=== PATIENT | male | born 1990 ===

== ENCOUNTER 2025-05-18 15:28 | Inpatient (IN) | payer OTHER ==
[~2025-05-18] VITALS: Ht 182.9 cm; Wt 189.9 kg
--- NOTE | 2025-05-18 19:15 | NUR ---
ADMISSION NOTE PT ARRIVED TO [facility] VIA SECURE TRANSPORT FROM [place] A DIRECT ADMIT AT APPROX 1828. PT WAS AxOx4. PLEASANT AND COOPERATIVE WITH CARE. 2 RN SKIN CHECK COMPLETED WITH C/D/I SKIN NOTED OVERALL. PT ARRIVED AT SHIFT CHANGE, THEREFORE THE ADMISSION ASSESSMENT/FORMS WERE NOT COMPLETED. THE ONCOMING NOC RN WAS MADE AWARE. PT WAS PROVIDED A MEAL AND ORIENTED TO THE UNIT. HE DENIES ANY OTHER IMMEDIATE CONCERNS.
[2025-05-18] MEDS ORDERED: Polyethylene Glycol 3350 17 gm PO PRN (20:20)
[2025-05-18] MEDS ORDERED: Ondansetron 4 MG SoluTab MM PRN (20:20)
[2025-05-18] MEDS ORDERED: Haloperidol Lactate Inj. 5 MG/ML Injection IM PRN (20:25)
[2025-05-18] MEDS ORDERED: Aluminum Hydroxide 320MG/5ML 473 ML PO PRN (20:25)
[2025-05-18] MEDS ORDERED: DiphenhydrAMINE HCl 50 MG/ML 1ML Vial IM PRN (20:25)
[2025-05-18 20:57] VITALS: BP 121/71
--- NOTE | 2025-05-18 22:27 | NUR ---
ADMISSION NOTE PT ARRIVED VIA SECURE TRANSPORT FROM [place] @1828. TWO RN SKIN CHECK COMPLETED BY DAY SHIFT RNS RONEY AND MARITZA. REPORT THAT SKIN IS CDI. PT IS AA&O TO PERSON, PLACE, SITUATION AND TIME. HE IS CALM AND COOPERATIVE. HE IS TIRED FROM TRANSPORT BUT ANSWERS QUESTIONS APPROPRIATELY. HE IS PROVIDED FOOD AND WATER. HE REPORTS MEDICAL HX OF HIV AND BIPOLAR. HE IS UNSURE IF IT WAS "ONE OR TWO" HE ENDORSES SI D/T RECENT OF BROTHER (BY SUICIDE) HIS AUNT AND UNCLE. HE STATES RECENT MOVE AND HOUSING INSTABILITY MAIN SI TRIGGERS. HE DENIES ALCOHOL AND TOBACCO USE. STATES HIS DRUG OF CHOICE IS METH. HE STATES THAT HE HAS DAILY THOUGHTS OF SI, PLAN WOULD BE TAKING F[place]OL BECAUSE HE KNOWS IT WOULD "DO THE TRICK" PROTECTIVE FACTORS ARE FEAR OF DYING. REPORTS HE HAS NEVER ACTED ON SI. PT ADMISSION PAPERWORK COMPLETE. PT ORIENTATED TO UNIT, SHOWERED AND IS NOW SLEEPING. HE DECLINED ANY PRN SLEEP MEDICATION.
--- NOTE | 2025-05-19 04:05 | NUR ---
END OF SHIFT UPDATE ASSUMED CARE OF PT AT 0000. NO ACUTE CHANGES. PT HAS REMAINED IN BED THROUGHOUT THE NIGHT. Q15 MINUTE CHECKS TO CONTINUE PER PT SAFETY/UNIT PROTOCOL.
[2025-05-19 08:28] LABS: CHOL/HDL RATIO 3.6; Cholesterol 181 mg/dL (50-200); HDL Cholesterol 50 mg/dL (>39); LDL/HDL RATIO 2.4; Low Density Lipoprotein Chol 118 mg/dL (0-110); Triglycerides 63 mg/dL (30-140); Very Low Density Lipoprot Chol 12 mg/dL (6-28)
[2025-05-19 08:57] VITALS: BP 131/83
[2025-05-19] MEDS ORDERED: Multivitamins 1 Tab PO SCH (09:00)
--- NOTE | 2025-05-19 17:04 | NUR ---
SHIFT SUMMARY PT WOKE UP FOR MORNING MEAL AND WAS COMPLIANT WITH HIS MEDICATIONS. HE DENIED ANY SI/HI/AVH AT THIS TIME AND C/O FEELING TIRED AND NEEDING MORE REST. HE ALSO C/O ALWAYS FEELING HUNGRY. HE PARTICIPATED IN ALL GROUPS AND HE WAS ACTIVE IN THE [facility]. THERE WAS A MESSAGE LEFT FROM PABLO ELIZONDO FROM [employer] TO COORDINATE D/C PLANNING BACK TO [place]. HER PHONE# [phone] FAX# [phone]. PT HAS NOT HAD ANY ACUTE INCIDENTS THIS SHIFT.
[2025-05-19 20:44] VITALS: BP 126/77
--- NOTE | 2025-05-20 04:29 | NUR ---
SHIFT SUMMARY PT LAYING IN BED, READING AT START OF SHIFT. HE DENIES ANY SI, HI, THOUGHTS OF SELF HARM OR AVTH. HE REPORTS HIS MOOD "BETTER". HE WAS OBSERVED TAPPING HIS FEET AND STATED HE WAS A LITTLE ANXIOUS. HE STATED HE WOULD TAKE SOME HYDROXYZINE, BUT WHEN I ATTEMPTED TO GIVE HIM THE MEDICATION, HE DECLINED TO TAKE IT, STATING THAT IT WOULD MAKE HIM SLEEP FOR DAYS. PT HAD EVENING SNACK AND RECEIVED PRN MELATONIN. HE HAD A SHOWER AND WENT TO BED. Q15 MINUTE CHECKS TO CONTINUE PER PT SAFETY/UNIT PROTOCOL.
--- NOTE | 2025-05-20 07:45 | NUR ---
Philly from [facility] care coordination called to ask if this patient would be returning to his prior area upon discharge. I provided her contact information to the patient and will have the patient reach out to speak with her. He did sign a ROSANA for [facility] this am. [facility] is the treatment facility that he'd like to go to upon discharge for drug and alcohol treatment. The facility is in [facility], close to his [facility].
[2025-05-20 09:00] VITALS: BP 137/84
--- NOTE | 2025-05-20 09:03 | NUR ---
DISCHARGE INFO- ROSANA WAS SIGNED FOR [facility] AND A CALL WAS PLACED TO SEE EXACTLY WHAT INFO THEY WANTED. THEY WOULD LIKE TO KNOW THE DISCHARGE DATE, SOON WE KNOW SO THAT THEY CAN BEGIN TO ARRANGE FOR HIS POST DC ADMISSION INTO DRUG/ALCOHOL TREATMENT. ROSANA IS IN THE CHART. [facility] PHONE [phone] AND [phone] FAX [phone]
--- NOTE | 2025-05-20 16:33 | NUR ---
This staff writer assumed care of this patient at approx. 1450. Patient denies hallucinations, HI, SI, and describes feeling "blah". Affect is congruent. He stated that he has been using methamphetamines for about two years, and so it will take a while to leave his system. He says that he has tried antidepressants in the past, however they make his mood worse so he is not interested at this time. He did participate in groups today, relaxed in the group room and outside with peers. Patient is appropriate with staff and others during interactions.
[2025-05-20 20:11] VITALS: BP 147/66
--- NOTE | 2025-05-21 04:14 | NUR ---
SHIFT SUMMARY PT LAYING IN BED RESTING AT START OF SHIFT. HE REPORTS HIS MOOD "SO-SO", HAS A FLAT AFFECT. HE DENIES ANY SI, HI, THOUGHTS OF SELF HARM OR AVTH. HE RECEIVED PRN MELATONIN, HAD EVENING SNACK AND WENT TO BED. HE HAS REMAINED IN BED THROUGHOUT THE NIGHT. Q15 MINUTE CHECKS TO CONTINUE PER PT SAFETY/UNIT PROTOCOL.
[2025-05-21 08:43] VITALS: BP 123/77
--- NOTE | 2025-05-21 17:16 | NUR ---
SHIFT SUMMARY DENIES SI, HI, AVTH. PT RELUCTANT TO JOIN GROUPS, BUT AFTER TALKING W/ PT ABOUT PURPOSE AND BENEFITS, PT HAS GONE TO ALL GROUPS. PT HAS BEEN IN DAY ROOM WATCHING TV AND INTERACTING W/ PT'S AND STAFF. PLEASANT AND COOPERATIVE, GUARDED AND BLUNTED AFFECT.
--- NOTE | 2025-05-22 05:13 | NUR ---
SHIFT SUMMARY: PT A/O X4. PLEASANT AND COOPERATIVE. IN DINNING AREA AT THE BEGINNING OF THE SHIFT. PT DENIES TO BE SI, HI AND AVH. PT IS GUERED IN MOOD,BUT WILLING TO ANSWERE QUESTIONS WHEN ASKED. STATES HE THINKS HE IS GOING TO BE GOING HOME TOMMOROW. TOOK MELATONIN FOR BEDTIME SLEEP AID. PT SLEPT SINCE GOING TO BED AT 2200. PLEASANT AND COOPERATIVE. WATCHED TV IN THE GROUP ROOM. WILL CONTINUE TO MONITOR
[2025-05-22 07:59] VITALS: BP 129/80
--- NOTE | 2025-05-22 17:41 | NUR ---
SHIFT ASSESSMENT: PT WAS RESTING IN HIS BED AT THE TIME OF THE INTERVIEW. HE DENIED SI, HI, AVH, ANXIETY AND PAIN. PT REPORTED HIS MOOD , "KIND OF IN-BETWEEN." PT'S AFFECT WAS CONCRUENT WITH HIS STATED MOOD. PT ATTENDED TV TIME WITH PEERS AND HAS BEEN PLEASANT AND COOPERATIVE.
[2025-05-22 19:12] VITALS: BP 135/70
--- NOTE | 2025-05-23 04:45 | NUR ---
SHIFT SUMMARY: PATIENT WAS LYING IN BED AT THE BEGINNING OF THE SHIFT. HE AWAKENED TO HIS NAME STATED SOFTLY AND PARTICIPATED IN BUSINESS INFORMATION CONSULTANT BY GIVING LOGICAL AND LINEAR ANSWERS. HE STATED, "I'M JUST REALLY TIRED" AND DENIED SUICIDAL IDEATION, THOUGHTS OF SELF HARMING AND A/V/T HALLUCINATIONS. HE STATED, "I THINK I'M GETTING THE HELP I NEED" AND "I DON'T KNOW WHY I'M SO TIRED". HE DECLINED OFFER OF SNACK AT 2030, AND STATED THAT HE DID NOT NEED ANY PRN SLEEP MEDICATIONS, EVEN THE MELATONIN HE TOOK THE NIGHT BEFORE. HE STAYED IN BED THROUGHOUT THE SHIFT AND WAS NOTED TO BE RESTING QUIETLY WITH EYES CLOSED AND RESPIRATIONS CONFIRMED. CONTINUING TO MONITOR FOR SAFETY WITH Q15 MINUTE CHECKS.
[2025-05-23 08:36] VITALS: BP 126/76
--- NOTE | 2025-05-23 16:23 | NUR ---
SHIFT SUMMARY PT A/O X4; DENIES SI, HI, AVTH. PT APPEARS RESTLESS/ANXIOUS AT TIMES BUT DECLINES THE NEED FOR MEDICATIONS. PT DOES NOT LIKE HOW MEDICATIONS MAKE HIM FEEL AND REPORTS THAT HE IS ABLE TO USE COPING SKILLS TO HELP HIM CALM DOWN. PT TO DISCHARGE TO INPATIENT DRUG AND ALCOHOL REHAB WITH [facility]. PT WANTED TO DISCHARGE TODAY BUT EDUCATED PT ON BETTER OUTCOMES IF HE WAITS UNTIL THE WEEKDAY TO DISCHARGE. PT AGREEABLE TO THIS AT THIS TIME. HE DOES NOT ALWAYS PARTICIPATE IN GROUP, BUT DOES PARTICIPATE IN MEALS AND MILIEU ACTIVITIES.
[2025-05-23 19:30] VITALS: BP 135/68
--- NOTE | 2025-05-24 04:49 | NUR ---
SHIFT SUMMARY: PT A/O X4. PLEASANT AND COOPERATIVE. PT QUITE THIS EVENING. DENIES TO HAVE ANYTHING WRONG. DENIES SI,HI, AND AVH. WENT TO THE TV ROOM FOR A SHORT TIME AFTER DINNEER. WENT TO CHECK ON PT AND TO INTERVIEW HIM FUTHER. PT SAID HE IS TIRED AND DISAPPOINTED THAT HE COULD NOT LEAVE TODAY. EXPLAIED THAT [facility] DON'T USUALLY GO HOME ON WEEKENDS. HE WAS OK WITH THAT. LEFT PT IN HIS BED. CHECKED ON PT AGAIN AND HE WAS ALREADY ASLEEP. HAS BEEN SLEEPING ALL NIGHT WILL CONTINUE TO MONITOR
[2025-05-24 08:43] VITALS: BP 130/77
--- NOTE | 2025-05-24 17:16 | NUR ---
SHIFT SUMMARY PT A/O X4; PLEASANT AND COOPERATIVE WITH CARE. NO ACUTE CHANGES THIS SHIFT. HE DENIES SI, HI, AVTH. AFFECT IS BLUNTED. HE ATTENDS SOME GROUPS AND MILIEU ACTIVITIES. PT TO POTENTIALLY DISCHARGE TO A INPATIENT REHAB FOR [place] TOMORROW.
[2025-05-24 21:56] VITALS: BP 135/66
--- NOTE | 2025-05-25 04:21 | NUR ---
SHIFT SUMMARY: PT A/O X4. PLEASANT AND COOPERATIVE. PT SAAID HE WAS BORED OF BEING HERE. PT IN PLAYFUL MOOD AND INTERCTING WITH PEERS IN THE TV ROOM. PT THINKS HE IS READY FOR DISCHARGE TOMORROW. DENIES SI, HI, AND AVH. MOOD HAPPY AND SMILING. HAS BEEN SLEEPING SINCE ABOUT 2129 AND STILL SLEEPING AT THIS TIME. WILL CONTINUE TO MONITOR.
[2025-05-25 09:20] VITALS: BP 136/79
--- NOTE | 2025-05-25 12:38 | NUR ---
IMPORTANT DISCHARGE INFORMATION PATIENT BEING DISCHARGED TODAY. [facility] TO PICK HIM UP THIS AFTERNOON AND TRANSPORT BACK TO THE [place] [facility]. PER PATIENT REQUEST, HE WILL BE TAKEN TO [facility]. ALL PARTIES VERBLAIZE AN UNDERSTANDING. PATIENT WAS GIVEN RESOURCES FOR: [facility]. THEY HAVE BEEN ADVISED/REQUESTED TO ASSIST PATIENT IN MENTAL HEALTH SERVICES, PRIMARY CARE, ADICTION TREATMENT AND TRANSITIONAL HOUSING.
--- NOTE | 2025-05-25 13:54 | NUR ---
DISCHARGE NOTE PT AxOx4. PLEASANT AND COOPERATIVE WITH CARE. PT IS DISCHARGING BACK TO [facility]. PT DENIED SI/HI AND AVTH THIS SHIFT AND HAS BEEN FOLLOWING HIS TREATMENT PROGRAM BY PARTICIPATING IN [facility] THERAPY GROUPS AND MINGLING APPROPRIATELY WITH PEERS/STAFF. SAFETY PLAN WAS COMPLETED AND DC INSTRUCTIONS DISCUSSED, INCLUDING MENTAL HEALTH FOLLOW UP INFOMATION IN [facility] AND PATIENT EDUCATION ON DIAGNOSES. PT VERBALIZED UNDERSTANDING OF DC INSTRUCTIONS. HIS BELONGINGS WERE RETURNED AND THEN HE WAS SAFELY ESCORTED OUT WITH [facility] TO MEET HIS RIDE.
== END 2025-05-25 13:54 | disposition home or self-care (01) | DRG 897 ==
LOC: BHU 15:28
PROVIDERS: ADMIT Psychiatry & Neurology Psychiatry
DX: F15.20 Other stimulant dependence, uncomplicated (principal); Z59.01 Sheltered homelessness; R45.851 Suicidal ideations; Z21 Asymptomatic human immunodeficiency virus [HIV] infection status; Z79.899 Other long term (current) drug therapy
CPT/HCPCS: 36415; 80061; 83036; A9270